=== PATIENT | male | born 1995 | race Caucasian/White ===

== ENCOUNTER 2019-02-19 18:56 | Emergency (ER) | payer MEDICAID ==
[~2019-02-19] VITALS: Ht 177.8 cm; Wt 72.0 kg
[2019-02-19] MEDS ORDERED: NEOM10DR45 OT (19:24)
[2019-02-19] MEDS ORDERED: NAPR-56 PO (19:24)
[2019-02-19] MEDS ORDERED: HYDR-4383 PO (19:24)
[2019-02-19] MEDS ORDERED: CEPH250T PO (19:24)
[2019-02-19 20:20] VITALS: BP 112/71
== END 2019-02-19 20:24 | disposition home or self-care (01) ==
LOC: ER 18:58
DX: H72.91 Unspecified perforation of tympanic membrane, right ear (principal); Z88.0 Allergy status to penicillin; Z79.2 Long term (current) use of antibiotics; Z79.899 Other long term (current) drug therapy
CPT/HCPCS: 99283